=== PATIENT | male | born 1965 | race Caucasian/White ===

== ENCOUNTER 2024-10-20 10:32 | Day surgery (SDC) | payer OTHER, SELFPAY ==
[2024-10-20] VITALS (8 sets, daily range): BP systolic 112–151; BP diastolic 75–91; PULSE 80–92; RESP 16–20; TEMP 36.3–36.8; O2SAT 94–99; BMI 33.7
--- NOTE | 2024-10-20 11:24 | PRE.ANES_ITS ---
ASA Classification* ASA Classification ASA Classification: 2 Assessment & Plan Anesthesia* Anesthesia Assessment Anesthesia Assessment: Discussed sedation and/or anesthesia options, risks, benefits, and alternatives with patient/parents/legal guardian/POA. Questions invited. The patient/parents/legal guardian/POA seems to understand and agrees to proceed with anesthesia plan. Reviewed the physical assessment, medical history, allergy history and patient home medications list prior to surgery/procedure/anesthetic and documented any changes. Performed airway and anesthesia risk assessments. Anesthesia Type Anesthesia Type: MAC Anesthesia Focused Assessment* Temperature: 97.6 F Pulse Rate: 92 Blood Pressure: 135/84 Respiratory Rate: 16 Pulse Ox: 99 Airway Assessment Mouth opens: >3 cm Mallampati Score: II Focused Labs Anesthesia Preop lab: CBC CHEMISTRY COAG Pre-Assessment Diagnosis/Proposed Procedure Planned Operative Procedure(s): colonoscopy Anesthesia History Anesthesia History - alignment specialist: Anesthesia History - alignment specialist Hx Hospitalization No 10/20/24 11:07 Any Problems With Anesthesia No 10/20/24 11:07 Cholinesterase deficiency No 10/20/24 11:07 You/Your Family Experience No 10/20/24 11:07 fever (hyperthermia) with Relationship Recent Exposure to Contagious No 10/20/24 11:07 Disease Does patient have nerve No 10/20/24 11:07 stimulator Patient instructed to have device shut off --Does patient have Pacemaker No 10/20/24 11:07 or ICD? When Was Last Pacemaker Check QUESTION #4 FULL TEXT: You/Your Family Experience fever (hyperthermia) with Anesthesia Last Oral Intake Last Oral intake: Last Oral Intake NPO since 09:00 10/20/24 11:07 Meds taken in AM with sips of water? Meds patient instructed to take am of surgery PONV PONV - alignment specialist: PONV - alignment specialist Female No 10/20/24 11:07 HX of Motion Sickness No 10/20/24 11:07 HX of N/V After Surgery No 10/20/24 11:07 Non-Smoker Yes 10/20/24 11:07 Duration of Surgery greater No 10/20/24 11:07 than 60 minutes Number of Risk Factors 1 10/20/24 11:07 PONV Score Low Risk 10/20/24 11:07 Height & Weight Height & Weight: Anesthesia: Height & Weight Height 5 ft 9 in 10/20/24 11:07 Weight: 103.873 kg 10/20/24 11:07 Body Mass Index (BMI) 33.7 10/20/24 11:07 Respiratory Assessment Respiratory Assessment - alignment specialist: Respiratory Tract Infection Hx - alignment specialist Hx Respiratory Tract Infection No 10/20/24 11:07 STOP Sleep Apnea STOP Sleep Apnea - alignment specialist: STOP Sleep Apnea - alignment specialist Hx Hypertension Yes 10/20/24 11:07 Hx Sleep Apnea No 10/20/24 11:07 CPAP BIPAP Do you snore loudly (louder Yes 10/20/24 11:07 than talking or can be heard Do you often feel tired/ Yes 10/20/24 11:07 fatigued/ sleepy during daytime? Has anyone observed you stop Yes 10/20/24 11:07 breathing during sleep? STOP Results Positive 10/20/24 11:07 QUESTION #5 FULL TEXT : Do you snore loudly (louder than talking or can be heard through closed doors)? 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 Specify any problems Hx of Preganancy in last 3 N/A 10/20/24 11:07 Months Nurse Filling Out Transfusion JENNA 10/20/24 11:07 & Questions: Date: 10/20/24 10/20/24 11:07 Time: 11:09 10/20/24 11:07 Patient unable to answer at this time (ie. confused, unrespo /Reproduction History /Reproductive History - alignment specialist: /Reproductive Hx- alignment specialist Hx Now Gestational Age (in weeks): EDC: Hx Hx Para Hx Section SAB PFSH Medical History Seasonal allergies Onychomycosis Hypercholesterolemia Hypertension Erectile dysfunction Diabetes BPH with urinary obstruction Carpal tunnel syndrome on both sides Home Medications ?Medication ?Instructions ?Recorded ?Last Taken ?Type aspirin 81 mg tablet,delayed 81 mg PO QDAY 07/04/24 History release insulin NPH isoph U-100 human 100 50 unit subcut BID 1 10/19/24 History unit/mL subcutaneous suspension losartan 50 mg tablet 50 mg PO QDAY 07/04/24 Unkno wn History montelukast 10 mg tablet 10 mg PO QDAY 07/04/24 Unkno wn History omega-3 fatty acids 1,000 mg 1,000 mg PO QDAY 07/04/24 Unknown History capsule pioglitazone 45 mg tablet 45 mg PO QDAY 07/04/2410/19 History rosuvastatin 5 mg tablet 5 mg PO QDAY 07/04/24 History sildenafil 100 mg tablet 100 mg PO QDAY PRN 07/04/24 Unknown History tadalafil 5 mg tablet 5 mg PO QDAY 07/04/24 Unknow n History Allergy/AdvReac Type Severity Reaction Status Date / Time No Known Allergies Allergy Verified 10/20/24 11:03 Family History Mother CAD (coronary artery disease) Hyperlipidemia Social History Smoking Status: Former smoker how long ago did patient quit smokin04/04/2019 alcohol intake: never substance use type: does not use caffeine: Yes Review of Systems (Anesthesia) ROS Narrative System reviewed and no additional complaints, except as documented.
--- NOTE | 2024-10-20 11:25 | PCM.HP.STD ---
HPI - General General Date of Admission: 10/20/24 Date of Service: 10/20/24 Chief Complaint: Screening colonoscopy HPI Narrative HARVEY CASH, is a 58 M who presents today for a screening colonoscopy. He does hava a history of constipation and abdominal pain. This started about a month and a half ago and has since resolved. He is just here now for screening colonoscopy. He was having a bm once a week but he is now having one daily after using a fiber supplement. The pain was left upper quadrant. It still occurs sometimes but not as severe. [facility] Medical History Seasonal allergies Onychomycosis Hypercholesterolemia Hypertension Erectile dysfunction Diabetes BPH with urinary obstruction Carpal tunnel syndrome on both sides Home Medications ?Medication ?Instructions ?Recorded ?Last Taken ?Type aspirin 81 mg tablet,delayed 81 mg PO QDAY 07/04/24 10/16/24 History release insulin NPH isoph U-100 human 100 50 unit subcut BID 07/04/24 10/19/24 History unit/mL subcutaneous suspension losartan 50 mg tablet 50 mg PO QDAY 07/04/24 Unknown History montelukast 10 mg tablet 10 mg PO QDAY 07/04/24 Unknown History omega-3 fatty acids 1,000 mg 1,000 mg PO QDAY 07/04/24 Unknown History capsule pioglitazone 45 mg tablet 45 mg PO QDAY 07/04/24 10/19/24 History rosuvastatin 5 mg tablet 5 mg PO QDAY 07/04/24 10/19/24 History sildenafil 100 mg tablet 100 mg PO QDAY PRN 07/04/24 Unknown History tadalafil 5 mg tablet 5 mg PO QDAY 07/04/24 Unknown History Allergy/AdvReac Type Severity Reaction Status Date / Time No Known Allergies Allergy Verified 10/20/24 11:03 Family History Mother CAD (coronary artery disease) Hyperlipidemia Social History Smoking Status: Former smoker how long ago did patient quit smokin04/04/2019 alcohol intake: never substance use type: does not use caffeine: Yes ROS Constitutional Constitutional: Denies fatigue, fever(s), poor appetite, weight gain or weight loss Gastrointestinal Gastrointestinal: Denies belching, bloating, change in bowel habits, change in stool character, chewing difficulty, coffee ground emesis, constipation, cramping, diarrhea, dyspepsia, dysphagia, early satiety, excessive flatus, fecal incontinence, heartburn, hematemesis, hematochezia, hemorrhoids, loose stools, melena, nausea, odynophagia, rectal bleeding, tenesmus, vomiting or weight changes Vital Signs Vital Signs Vital Signs: 10/20/24 11:07 10/20/24 11:07 10/20/24 11:24 Temperature 97.6 F L 97.6 F L Temperature Source Temporal Pulse Rate 92 92 Respiratory Rate 16 16 Respiratory Pattern Normal Blood Pressure 135/84 H 135/84 H Blood Pressure Mean 101 Blood Pressure Source Monitor Blood Pressure Position Semi-Fowlers Blood Pressure Location Right Arm Pulse Ox 99 99 Oxygen Delivery Method Room Air Weight Weight: 229 lb Body Mass Index (BMI) 33.7 Physical Exam Const alert, oriented x3, no apparent distress and healthy appearing General Appearance: cooperative GI normal to inspection, nondistended, normoactive bowel sounds, soft to palpation, non-tender and non-distended Percussion: normal to percussion Rectal Exam: deferred Assessment & Plan Assessment/Plan (1) Abdominal pain: (2) Constipation: (3) Screening for colon cancer: PLAN: Plan This is a 58 yo male pt here today for establishment with [facility] after a few months of constipation and abdominal pain. This has since resoled but elliot still like to undergo colonoscopy as he has never had one before. He started taking fiber and this resolved his constipation. HE will continue taking this daily. HIs abdominal pain is not as bad. Imaging was all normal. Pain was likely related to gas-bloat syndrome. pt does not seem willing to have other tests as he waited a month to get in here. If he continues to have these issues he can f/u after his procedure -Colonoscopy -Continue fiber -Consider further workup for pain (2) Abdominal pain: Status: Acute
--- NOTE | 2024-10-20 11:30 | COLBX_PTH ---
PATIENT: HARVEY CASH LOC: EN U#:[id number] AGE/SX: 58/M ROOM: RE10/20/[address]: Dr. Adalberto Ballesteros DO : 1965 BED: DIS: 10/20/2024 SPEC #: [id number] RECD: 10/20/24 16:41 STATUS: MIKAEL RERuthie #: [id number] FRANCESCA: 10/20/24 11:[address]: Adalberto Ballesteros DEPT: SURGICAL PATHOLOGY RECD BY: Mychal Capellan ENTERED: 10/23/24 09:33 SP TYPE: COLON BX OT DR: Dr. Ramírez Ragland MD Tissues: Cecum, NOS Procedures: Surgery Specimen Level IV HEADER OPERATION: Colonoscopy and polypectomy PRE-OP DIAGNOSIS: Abdominal pain, constipation, screening for colon cancer TISSUE SUBMITTED: Cecal polyp MICROSCOPIC DIAGNOSIS Cecal polyp, polypectomy: Fragments of colonic mucosa, no pathologic diagnosis. 10/24/2024 MICROSCOPIC DESCRIPTION Slides are reviewed. GROSS DESCRIPTION Received in fixative is one container labeled with the patient's name and designated Cecal polyp. The specimen consists of multiple irregular fragments of light bonilla soft tissue that in aggregate measure 2 x 0.5 x 0.2 cm. The specimen is totally submitted in one cassette. 10/23/2024 TC:4 CPT:98592
[2024-10-20 12:16] LABS: Bedside Glucose 156 mg/dL (74-106)
--- NOTE | 2024-10-20 12:22 | OP.COLON_ITS ---
Patient Name: Silvano Garcia Procedure Date: 10/20/2024 11:12 AM Date of : 1965 Age: 58 Procedure: Colonoscopy Indications: Screening for colorectal malignant neoplasm Providers: Adalberto Ballesteros DO Medicines: Monitored Anesthesia Care Patient Profile: This is a 58 year old male. Refer to note in patient chart for documentation of history and physical. Last Colonoscopy: none. The patient's first colonoscopy is today. Complications: No immediate complications. Procedure: Pre-Anesthesia Assessment: - Prior to the procedure, a History and Physical was performed, and patient medications and allergies were reviewed. The patient is competent. The risks and benefits of the procedure and the sedation options and risks were discussed with the patient. All questions were answered and informed consent was obtained. Patient identification and proposed procedure were verified by the physician in the pre-procedure area. Mental Status Examination: alert and oriented. Airway Examination: normal oropharyngeal airway and neck mobility. Respiratory Examination: clear to auscultation. CV Examination: normal. Prophylactic Antibiotics: The patient does not require prophylactic antibiotics. Prior Anticoagulants: The patient has taken no anticoagulant or antiplatelet agents. ASA Grade Assessment: II - A patient with mild systemic disease. After reviewing the risks and benefits, the patient was deemed in satisfactory condition to undergo the procedure. The anesthesia plan was to use monitored anesthesia care (MAC). Immediately prior to administration of medications, the patient was re-assessed for adequacy to receive sedatives. The heart rate, respiratory rate, oxygen saturations, blood pressure, adequacy of pulmonary ventilation, and response to care were monitored throughout the procedure. The physical status of the patient was re-assessed after the procedure. After I obtained informed consent, the scope was passed under direct vision. Throughout the procedure, the patient's blood pressure, pulse, and oxygen saturations were monitored continuously. The Colonoscope was introduced through the anus and advanced to the cecum, identified by appendiceal orifice and ileocecal valve. The colonoscopy was performed without difficulty. The patient tolerated the procedure well. The quality of the bowel preparation was adequate. The ileocecal valve, appendiceal orifice, and rectum were photographed. Scope In: 11:52:54 AM Scope Withdrawal Time 0 hours 18 minutes 4 seconds Scope Out: 12:16:35 PM Total Procedure Duration Time 0 hours 23 minutes 41 seconds Findings: The perianal and digital rectal examinations were normal. Multiple small and large-mouthed diverticula were found in the recto-sigmoid colon, sigmoid colon, descending colon, splenic flexure and transverse colon. An 8 mm polyp was found in the cecum. The polyp was sessile. The polyp was removed with a hot snare. Resection and retrieval were complete. Verification of patient identification for the specimen was done. Estimated blood loss was minimal. Impression: - Diverticulosis in the recto-sigmoid colon, in the sigmoid colon, in the descending colon, at the splenic flexure and in the transverse colon. - One 8 mm polyp in the cecum, removed with a hot snare. Resected and retrieved. Recommendation: - Repeat colonoscopy in 5 years for surveillance. - Continue present medications. Procedure Code(s): --- Professional --- 63915, Colonoscopy, flexible; with removal of tumor(s), polyp(s), or other lesion(s) by snare technique CPT copyright 2021 [employer]. All rights reserved. The codes documented in this report are preliminary and upon grain origination specialist review may be revised to meet current compliance requirements. Adalberto Ballesteros DO 10/20/2024 12:21:48 PM This report has been signed electronically. Number of Addenda: 0 Note Initiated On: 10/20/2024 11:12 AM
--- NOTE | 2024-10-20 12:23 | PCM.POST.ANE ---
Anesthesia: Postop Eval I Current Vital Signs Temperature: 97.4 F Pulse Rate: 85 Blood Pressure: 112/75 Respiratory Rate: 20 Pulse Ox: 95 Oxygen Delivery Method: Room Air Assessment Airway patent: Yes Spontaneous unlabored respirations: Yes Mental status: Asleep nausea: No Vomiting: No Anesthesia Complication: No Fluid Hydration Crystalloid volume administer (ml): 60 Total IV fluid infused: 60 Progress Note Anesthesia document: Postop Eval 1 completed: Yes
--- NOTE | 2024-10-20 21:25 | PCM.POSTANE2 ---
Anesthesia Postop Eval I Sum Postop Eval Completion status Anesthesia document: Postop Eval 1 completed: Yes Anesthesia Postop Eval I Summary Anesthesia Postop Eval I Summary: Anesthesia Postop Eval I: Assessment Summary Airway patent Yes 10/20/24 12:24 [email or web address] Spontaneous unlabored Yes 10/20/24 12:24 [email or web address] respirations Mental status Asleep 10/20/24 12:24 [email or web address] nausea No 10/20/24 12:24 [email or web address] Vomiting No 10/20/24 12:24 [email or web address] Anesthesia Postop Eval I: Fluid Summary Crystalloid volume administer 60 10/20/24 12:24 [email or web address] (ml) Colloids volume administered ( ml) Blood Product volume administered (ml) Total IV fluid infused 60 10/20/24 12:24 [email or web address] Anesthesia Postop Eval I: Summary Notes Anesthesia Complication No 10/20/24 12:24 [email or web address] Anesthesia Complication Comment: Post-operative progress note Anesthesia: Postop Eval II Evaluation Mental status: Awake and Calm Pain Level: 0 nausea: No Vomiting: No Complications Anesthesia Complication: No
== END 2024-10-20 13:50 | disposition home or self-care (01) ==
LOC: EN 10:36 → AC 10:38
PROVIDERS: PCP Family Medicine; Referring Provider Family Medicine; Visit Provider Internal Medicine Gastroenterology
PROC: 0DJD8ZZ Inspection of Lower Intestinal Tract, Via Natural or Artificial Opening Endoscopic (ICD-10-PCS; CPT 45378; principal; 2024-10-20 11:25)
DX: Z12.11 Encounter for screening for malignant neoplasm of colon (principal); E11.9 Type 2 diabetes mellitus without complications; Z79.4 Long term (current) use of insulin; K57.30 Diverticulosis of large intestine without perforation or abscess without bleeding; E78.00 Pure hypercholesterolemia, unspecified; K63.5 Polyp of colon; I10 Essential (primary) hypertension; Z79.82 Long term (current) use of aspirin; Z79.899 Other long term (current) drug therapy; Z87.891 Personal history of nicotine dependence
CPT/HCPCS: 45385; 82962; 88305; A4216; J2405